=== PATIENT | male | born 1985 | race Caucasian/White ===

== ENCOUNTER 2017-12-28 18:00 | Emergency (ER) | payer SELFPAY ==
[2017-12-28] MEDS ORDERED: PROPARACAINE HCL 0.5% OPTH OP ONE (18:45)
[2017-12-28] MEDS ORDERED: OPTH IRRIGATION SOLUTION 120 ML BTL OP ONE (18:45)
[2017-12-28] MEDS ORDERED: NEOMY SULF/POLYMYX B SULF/HC OPTH SUSP OP ONE (18:55)
[2017-12-28] MEDS ORDERED: POLYMYXIN B SULF/TRIMETHOPRIM OPHTHALMIC DROPS OP ONE (18:58)
[2017-12-28] MEDS ORDERED: PHARMACY KEY 1 EACH EACH MC ONE (19:00)
[2017-12-29 00:54] VITALS: BP 119/65
--- NOTE | 2017-12-29 05:50 | ED Physician Documentation ---
Eye Problem - HISTORIAN Historian: patient - HPI Stated Complaint: Pain behind Rt eye since Sunday Chief Complaint: Eye Problems Additional Information: pain right eye since Sunday. 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 Onset: days ago (5) Associated symptoms: pain, burining Location: right eye Severity: moderate Apparent Injury: yes Context: direct trauma, chemical exposure Where: work Other Injuries: other (none) Further Comments: no - ROS CONST: no problems MS/SKIN/LYMPH: denies: weakness, numbness, neck pain, back pain, ankle swelling , leg swelling, rash CVS/RESP: none EYES/ENT: other (normal milky right pupil secondary to damage as child) GI/: denies: problems urinating, nausea, vomiting NEURO: denies: headache - PAST HX Past History: other (trauma right eye) Immunizations: referred to PCP Allergies/Adverse Reactions: Allergies Allergy/AdvReac Type Severity Reaction Status Date / Time No Known Allergies Allergy Verified 12/29/17 00:53 Home Medications: Ambulatory Orders Medication Instructions Recorded NK [NK] 12/29/17 - SOCIAL HX Smoking History: cigarettes Alcohol Use: none Drug Use: none - FAMILY HX Family History: no significant history - VITAL SIGNS Vital Signs: Vital Signs Temp Pulse Resp BP Pulse Ox 60 16 119/65 99 12/29/17 01:03 12/29/17 01:03 12/29/17 01:03 12/28/17 18:01 - REVIEWED ASSESSMENTS Nursing Assessment Reviewed: Yes Vitals Reviewed: Yes Progress - Results/Orders Results/Orders: no testing ordered - Progress Progress: eye examined, stained, flushed and cortisporin eye drops placed in right eye, patch applied Critical Care Note - Critical Care Note Total Time (mins): 0 ED Results Lab/Radiology - Lab Results Lab Results: none ordered - Radiology Radiology Impressions: none ordered - Orders Orders: ED Orders Category Date Time Status Neomycin/Polymyxin B/Hydrocort [Cortisporin Opth Susp] Med 12/28/17 18:55 Discontinued 2 drop OP NOW ONE Opth Irrigation Solution [Eye Wash Solution] Med 12/28/17 18:45 Discontinued 120 ml OP NOW ONE [facility] 12/28/17 19:00 Discontinued 1 each [facility] .STK-MED ONE Polymyxin B Sulf/Trimethoprim [Polytrim] Med 12/28/17 18:58 Discontinued 150 drop OP .STK-MED ONE Proparacaine HCl [Ophthaine] Med 12/28/17 18:45 Discontinued 2 drop OP NOW ONE Eye Problem Physical Exam - Physical Exam General Appearance: alert, moderate distress Examined with Slit Lamp: No Visual Acuity: see nursing assessment Eyelids: nml inspection Conjunctiva and Sclera: nml inspection Corneas: abrasion (R), fluorescein dye uptake (R), examined with fluorescein (R) EOM: intact Pupils: equal Anterior Chambers: nml inspection Post Segments: nml funduscopic (R) Head/ENT: nml inspection, pharynx nml Skin: nml color, warm, skin intact Neck/Back: nml inspection, non-tender Respiratory: no resp distress, chest non-tender CVS: reg rate & rhythm, heart sounds normal, equal pulses Abdomen: non-tender, no organomegaly, nml bowel sounds Neuro/Psych: oriented x3, neuro intact, mood/affect nml Discharge Clincal Impression: Right corneal abrasion Qualifiers: Encounter type: initial encounter Qualified Code(s): S05.01XA - Injury of conjunctiva and corneal abrasion without foreign body, right eye, initial encounter Referrals: Primary Doctor,No [Primary Care Provider] - 2 Days Comments: discharged in stable condition with eye patch and cortisporin eye drops 4x/day Condition: Stable Disposition: 01 HOME, SELF-CARE Decision to Admit: NO Decision Time: 19:05
== END 2017-12-28 19:30 | disposition home or self-care (01) ==
LOC: ED 18:00
DX: S05.01XA Injury of conjunctiva and corneal abrasion without foreign body, right eye, initial encounter (principal); Y92.9 Unspecified place or not applicable; Y93.9 Activity, unspecified; Y99.9 Unspecified external cause status; Z04.2 Encounter for examination and observation following work accident
CPT/HCPCS: 99283; A9270-GY